=== PATIENT | female | born 1990 | race African-American/Black ===

== ENCOUNTER 2020-08-24 03:23 | Emergency (ER) | payer MEDICAID, OTHER ==
[~2020-08-24] VITALS: Ht 165.1 cm; Wt 63.5 kg
[~2020-08-24 03:23] MED LIST: CIPROFLOXACIN500 M2 ORAL
--- NOTE | 2020-08-24 03:36 | NUR ---
ED Nurse Note: Patient walked into the ED with c/o sinus congestion accompanied by cough onset 11 days ago. PAtient was tested for covid in another hospital but results are pending. Patient denies SOB/CP, fever and chills, N&V. PAtient is AAOx4 and ambulatory.
--- NOTE | 2020-08-24 03:40 | NUR ---
ED Nurse Note: ERMD at bedside
--- NOTE | 2020-08-24 03:42 | Emergency Room Report ---
History of Present Illness General Chief Complaint: Allergies Source: Patient Present Illness HPI This is a 29-year-old female with no past medical history she presents with congestion shortness of breath. This been ongoing since March but worsened in the last week to 2. She said she is better when she leaves the apartment. She thinks that there is a maria problem and it is affecting her. She woke up tonight very congested and could not breathe. She has been using Claritin and [id number] medication. Not helping much. No history of asthma. Worse with deep breath. Worse with laying flat. Better with sitting up. She had Covid testing done yesterday and results not back yet. Allergies: Coded Allergies: No Known Allergies (Unverified , 01/15/15) COVID-19 Screening Contact w/high risk pt: No Experienced COVID-19 symptoms?: No COVID-19 Testing performed GROVE WORKER: No Patient History Past Medical History: none, see triage record, old chart reviewed Past Surgical History: none Pertinent Family History: none Social History: Denies: smoking Now: No Immunizations: other Reviewed Nursing Documentation: PMH: Agreed; PSxH: Agreed Nursing Documentation-PMH Past Medical History: No Stated History Review of Systems Eye: Denies: eye pain, blurred vision ENT: Reports: nose congestion; Denies: ear pain, throat swelling Respiratory: Reports: cough, shortness of breath Cardiovascular: Denies: chest pain, palpitations Gastrointestinal: Denies: abdominal pain, diarrhea, nausea, vomiting Musculoskeletal: Denies: back pain, joint pain Skin: Denies: rash Neurological: Denies: headache, numbness Endocrine: Denies: increased thirst, increased urine Hematologic/Lymphatic: Denies: easy bruising All Other Systems: negative except mentioned in HPI Physical Exam Vital Signs Date Time Temp Pulse Resp B/P (MAP) Pulse Ox O2 Delivery O2 Flow Rate FiO2 08/24/20 03:27 97.9 92 18 132/79 (96) 98 Room Air Vitals normal Sp02 EP Interpretation: reviewed, normal General Appearance: well appearing, no apparent distress, alert Head: normocephalic, atraumatic Eyes: bilateral eye PERRL, bilateral eye EOMI ENT: hearing grossly normal, normal pharynx Neck: full range of motion, supple, no meningismus Respiratory: chest non-tender, lungs clear, normal breath sounds, other - Coughing with inspiration Cardiovascular #1: regular rate, rhythm, no murmur Gastrointestinal: normal bowel sounds, non tender, no mass, no organomegaly, no bruit, non-distended Musculoskeletal: back normal, normal range of motion, gait/station normal Psychiatric: mood/affect normal Medical Decision Making Diagnostic Impression: Primary Impression: Allergic bronchitis Qualified Codes: J45.901 - Unspecified asthma with (acute) exacerbation ER Course Patient with acute bronchitis. Most likely allergic reaction. No evidence of ACS, PE, dissection. Patient has Covid testing done already. Still awaiting results. This could also be secondary to viral infection. I see no evidence of bacterial infection. Better after breathing treatment. Last Vital Signs Date Time Temp Pulse Resp B/P (MAP) Pulse Ox O2 Delivery O2 Flow Rate FiO2 08/24/20 03:27 97.9 92 18 132/79 (96) 98 Room Air Status: improved Disposition: HOME, SELF-CARE Condition: Improved Scripts Prednisone* (PREDNISONE*) 20 Mg Tablet 40 MG ORAL DAILY, #8 TAB Prov: Abdirizak Gallegos MD 08/24/20 Albuterol Sulfate* (Albuterol Sulfate Hfa*) 8.5 Gm Hfa.aer.ad 2 PUFF INH Q4H, #1 INH Prov: Abdirizak Gallegos MD 08/24/20 Additional Instructions: Follow-up with your doctor in 7 days. You may need allergy testing. Return if symptoms worsen. Abdirizak Gallegos MD Aug 24, 2020 03:41
[2020-08-24] MEDS ORDERED: Albuterol ud Inhalation HHN ONE (03:45)
[2020-08-24] MEDS ORDERED: Albuterol 90mcg Inhaler 8gm INH ONE (03:45)
[2020-08-24 03:47] VITALS: BP 132/79
[2020-08-24] MEDS ORDERED: PREDNISONE20 MG ORAL (04:09)
[2020-08-24] MEDS ORDERED: ALBUTEROL SULF8.5 G1 INH (04:09)
--- NOTE | 2020-08-24 04:10 | NUR ---
ED Nurse Note: Breathing tx done
[2020-08-24 04:17] VITALS: BP 132/79
--- NOTE | 2020-08-24 04:17 | NUR ---
ER DISCHARGE NOTE: Patient is cleared to be discharged per ERMD, pt is aox4, on room air, with stable vital signs. pt was given dc and prescription instructions, pt was able to verbalize understanding, pt id band removed. pt is able to ambulate with steady gait. pt took all belongings.
== END 2020-08-24 04:15 | disposition home or self-care (01) ==
LOC: EMR 04:04
DX: J45.901 Unspecified asthma with (acute) exacerbation (principal)
CPT/HCPCS: J7512; Z7502; 99283

== ENCOUNTER 2021-01-11 23:04 | Emergency (ER) | payer MEDICAID ==
[~2021-01-11] VITALS: Ht 165.1 cm; Wt 72.6 kg
[~2021-01-11 23:04] MED LIST changes: +ALBUTEROL SULF8.5 G1 INH; +PREDNISONE20 MG ORAL
--- NOTE | 2021-01-11 23:29 | Emergency Room Report ---
History of Present Illness General Chief Complaint: Headache Source: Patient Present Illness [facility] This is a 30-year-old female with no past medical history. She presents with treatment of headache. She is under a lot of stress and feeling anxious. She normally gets a mild headache every day. What concerned her today as she is getting the sharp pain along the right side top of her head. Lasted for a few seconds. No relief with aspirin. No focal deficit. No slurred speech. Denies any trauma. When the pain comes on is 7 out of 10. Allergies: Coded Allergies: No Known Allergies (Unverified , 01/15/15) COVID-19 Screening Contact w/high risk pt: No Experienced COVID-19 symptoms?: No COVID-19 Testing performed INTERNATIONAL STUDENT ADVISOR: No Patient History Past Medical History: see triage record, old chart reviewed Past Surgical History: none Pertinent Family History: none Social History: Denies: smoking Last Menstrual Period: 12/14/2020 Now: No Immunizations: other Reviewed Nursing Documentation: PMH: Agreed; PSxH: Agreed Nursing Documentation-PMH History Of Psychiatric Problem: Yes - anxiety Review of Systems Eye: Denies: eye pain, blurred vision ENT: Denies: ear pain, nose congestion, throat swelling Respiratory: Denies: cough, shortness of breath Cardiovascular: Denies: chest pain, palpitations Gastrointestinal: Denies: abdominal pain, diarrhea, nausea, vomiting Musculoskeletal: Denies: back pain, joint pain Skin: Denies: rash Neurological: Reports: headache; Denies: numbness Endocrine: Denies: increased thirst, increased urine Hematologic/Lymphatic: Denies: easy bruising All Other Systems: negative except mentioned in HPI Physical Exam Vital Signs Date Time Temp Pulse Resp B/P (MAP) Pulse Ox O2 Delivery O2 Flow Rate FiO2 01/11/21 23:15 98.4 86 16 142/75 (97) 99 Room Air Vitals unremarkable Sp02 EP Interpretation: reviewed, normal General Appearance: well appearing, no apparent distress, alert Head: normocephalic, atraumatic Eyes: bilateral eye PERRL, bilateral eye EOMI ENT: hearing grossly normal, normal pharynx Neck: full range of motion, supple, no meningismus Respiratory: chest non-tender, lungs clear, normal breath sounds Cardiovascular #1: regular rate, rhythm, no murmur Gastrointestinal: normal bowel sounds, non tender, no mass, no organomegaly, no bruit, non-distended Musculoskeletal: back normal, normal range of motion, gait/station normal Psychiatric: mood/affect normal Medical Decision Making Diagnostic Impression: Primary Impression: Headache Qualified Codes: G44.209 - Tension-type headache, unspecified, not intractable Additional Impression: Anxiety ER Course This patient presents with headache. This most likely anxiety related. Because of the different kind of pain that she got, I ordered CT head. Negative for intracranial pathology. She was very nervous. CT/MRI/US Diagnostic Results CT/MRI/US Diagnostic Results : Imaging Test Ordered: Ct head Impression Read by radiologist. Negative. Last Vital Signs Date Time Temp Pulse Resp B/P (MAP) Pulse Ox O2 Delivery O2 Flow Rate FiO2 01/11/21 23:15 98.4 86 16 142/75 (97) 99 Room Air Status: improved Disposition: HOME, SELF-CARE Condition: Stable Scripts Lorazepam* (ATIVAN*) 1 Mg Tablet 1 MG ORAL THREE TIMES A DAY, #21 TAB Prov: Abdirizak Gallegos MD 01/12/21 Patient Instructions: Tension Headache Additional Instructions: Follow-up with your doctor in 7 days. Cut down on your aspirin use. Only take 1 tablet every 4-6 hours as needed. Return if symptoms worsen. Abdirizak Gallegos MD Jan 11, 2021 23:29
--- NOTE | 2021-01-12 00:03 | Diagnostic Imaging Report ---
EXAM: CT Head Without Intravenous Contrast CLINICAL HISTORY: PAIN TECHNIQUE: Axial computed tomography images of the head/brain without intravenous contrast. CTDI is 53.4 mGy and DLP is 1045.5 mGy-cm. One or more of the following dose reduction techniques were used: automated exposure control, adjustment of the mA and/or kV according to patient size, use of iterative reconstruction technique. COMPARISON: No relevant prior studies available. FINDINGS: Brain: No hemorrhage or mass effect. Ventricles: No hydrocephalus. Bones/joints: Unremarkable. Soft tissues: Chronic changes to the left orbit. Sinuses: Minimal mucosal thickening of the frontal and ethmoid sinus. Mastoid air cells: Clear. IMPRESSION: No acute hemorrhage, hydrocephalus, or mass effect.
[2021-01-12] MEDS ORDERED: ATIVAN1 MG ORAL (00:12)
[2021-01-12] MEDS ORDERED: LORazepam 1mg tab ORAL ONE (00:15)
[2021-01-12 00:21] VITALS: BP 142/75
--- NOTE | 2021-01-12 00:23 | NUR ---
pt given and understands discharge instructions. ambulatory out w steady gait
== END 2021-01-12 00:23 | disposition home or self-care (01) ==
LOC: EMR 23:28
DX: G44.209 Tension-type headache, unspecified, not intractable (principal); F41.9 Anxiety disorder, unspecified
CPT/HCPCS: 70450; Z7502; 99284